=== PATIENT | male | born 1990 | race Caucasian/White ===

== ENCOUNTER 2016-11-20 02:24 | Emergency (ER) | payer SELFPAY ==
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
[2016-11-20 03:06] VITALS: BP 131/74
== END 2016-11-20 03:20 | disposition home or self-care (01) ==
LOC: ER 02:24
DX: T76.21XA Adult sexual abuse, suspected, initial encounter (principal); X58.XXXA Exposure to other specified factors, initial encounter
CPT/HCPCS: 99284

== ENCOUNTER 2016-11-20 15:25 | Emergency (ER) | payer SELFPAY ==
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
[2016-11-20 17:15] LABS: ABSOLUTE BASOPHILS # (AUTO) 0.1 10^3/uL (0.0-0.2); ABSOLUTE EOSINOPHILS # (AUTO) 0.5 10^3/uL (0.0-0.6); ABSOLUTE LYMPHOCYTES (AUTO) 2.9 10^3/uL (0.5-4.7); ABSOLUTE MONOCYTES (AUTO) 0.8 10^3/uL (0.1-1.4); BASOPHILS % (AUTO) 0.9 % (0-2); EOSINOPHILS % (AUTO) 4.9 % (0-6); HEMATOCRIT 37.4 % (37.9-51.0); HEMOGLOBIN 13.1 g/dL (13.5-17.0); HGB HCT DIFFERENCE 1.9; LYMPHOCYTES % (AUTO) 31.6 % (13-45); MEAN CORPUSCULAR HEMOGLOBIN 29.9 pg (27.0-33.4); MEAN CORPUSCULAR HGB CONC 34.9 g/dL (32.0-36.0); MEAN CORPUSCULAR VOLUME 86 fl (80-97); MONOCYTES % (AUTO) 8.4 % (3-13); RED BLOOD COUNT 4.38 10^6/uL (4.35-5.55); RED CELL DISTRIBUTION WIDTH 13.6 % (11.5-14.0); SEGMENTED NEUTROPHILS % (AUTO) 54.2 % (42-78); WHITE BLOOD COUNT 9.1 10^3/uL (4.0-10.5)
[2016-11-20 17:24] VITALS: BP 108/64
[2016-11-20 17:37] LABS: ALANINE AMINOTRANSFERASE 37 U/L (21-72); ALBUMIN 4.4 g/dL (3.5-5.0); ALCOHOL 14 mg/dL (NONE DETECTED); ALKALINE PHOSPHATASE 56 U/L (38-126); ANION GAP 14 (5-19); ASPARTATE AMINO TRANSFERASE 25 U/L (17-59); BILIRUBIN,DIRECT 0.3 mg/dL (0.0-0.4); BILIRUBIN,TOTAL 0.4 mg/dL (0.2-1.3); BLOOD UREA NITROGEN 7 mg/dL (7-20); CARBON DIOXIDE 23 mmol/L (22-30); CHLORIDE 99 mmol/L (98-107); CREATININE RESULT 0.81 mg/dL (0.52-1.25); GLUCOSE 77 mg/dL (75-110); LITHIUM 0.6 mEq/L (0.6-1.2); POTASSIUM 4.3 mmol/L (3.6-5.0); SODIUM 135.8 mmol/L (137-145); TOTAL PROTEIN 7.4 g/dL (6.3-8.2)
[2016-11-20 17:38] LABS: URINE BARBITURATES SCREEN UNCONFIRMED POSITIVE; URINE METHADONE SCREEN NEGATIVE; URINE OPIATES LOW NEGATIVE; URINE PHENCYCLIDINE SCREEN NEGATIVE
--- NOTE | 2016-11-20 19:20 | EKG REPORT ---
SEVERITY:- NORMAL ECG - SINUS RHYTHM : Confirmed by: Caden Miguel MD 20-Nov-2016 19:19:46
== END 2016-11-20 19:20 | disposition home or self-care (01) ==
LOC: ER 15:25
DX: T43.591A Poisoning by other antipsychotics and neuroleptics, accidental (unintentional), initial encounter (principal); T44.3X1A Poisoning by other parasympatholytics [anticholinergics and antimuscarinics] and spasmolytics, accidental (unintentional), initial encounter; T44.7X1A Poisoning by beta-adrenoreceptor antagonists, accidental (unintentional), initial encounter; Y92.9 Unspecified place or not applicable
CPT/HCPCS: 36415; 80053; 80178; 80307; 85025; 93005; 93010; 99284

== ENCOUNTER 2016-11-21 00:37 | Emergency (ER) | payer SELFPAY ==
[2016-11-21 01:28] LABS: ABSOLUTE BASOPHILS # (AUTO) 0.1 10^3/uL (0.0-0.2); ABSOLUTE EOSINOPHILS # (AUTO) 0.7 10^3/uL (0.0-0.6); ABSOLUTE MONOCYTES (AUTO) 0.7 10^3/uL (0.1-1.4); ABSOLUTE NEUT (AUTO) 4.4 10^3/uL (1.7-8.2); EOSINOPHILS % (AUTO) 8.3 % (0-6); HEMOGLOBIN 13.1 g/dL (13.5-17.0); HGB HCT DIFFERENCE 2.3; LYMPHOCYTES % (AUTO) 33.9 % (13-45); MEAN CORPUSCULAR HEMOGLOBIN 29.8 pg (27.0-33.4); MEAN CORPUSCULAR HGB CONC 35.3 g/dL (32.0-36.0); MEAN CORPUSCULAR VOLUME 85 fl (80-97); RED BLOOD COUNT 4.38 10^6/uL (4.35-5.55); RED CELL DISTRIBUTION WIDTH 13.9 % (11.5-14.0); SEGMENTED NEUTROPHILS % (AUTO) 48.8 % (42-78)
--- NOTE | 2016-11-21 01:37 | ER Document Report ---
ED General - General Chief Complaint: Possible Overdose Stated Complaint: POSSIBLE OVERDOSE Time Seen by Provider: 11/21/16 01:07 Notes: Patient is a 26-year-old male coming in for his third visit to this emergency department less than 36 hours in police custody after apparently being kicked out of [facility] after being visibly intoxicated. Patient himself reports that he only drank 1 beer and when he disclosed this to his housemates [facility] he was kicked out. Patient was seen less than 24 hours ago for apparently the exact same complaint. Upon being kicked that he did describe mailbox which was witnessed by police who did arrest him and bring him here to the emergency department after he disclosed that he had eaten an unknown quantity of numerous pills that he had in his possession including valproic acid , lithium and propranolol. Patient admits that this was a suicide attempt. Patient denies any acute physical complaints. Nothing improves or worsens his symptoms today. History is otherwise limited secondary to patient's intoxication and anxiety at time of presentation - Related Data Allergies/Adverse Reactions: No Known Allergies Allergy (Unverified 11/21/16 02:25) Past Medical History - General Information source: Patient - Social History Smoking Status: Never Smoker Frequency of alcohol use: Occasional Drug Abuse: None Lives with: Homeless Family History: Reviewed & Not Pertinent Psychiatric Medical History: Reports: Hx Bipolar Disorder, Hx Depression Review of Systems - Review of Systems Notes: Constitutional: Negative for fever. HENT: Negative for sore throat. Eyes: Negative for visual changes. Cardiovascular: Negative for chest pain. Respiratory: Negative for shortness of breath. Gastrointestinal: Negative for abdominal pain, vomiting or diarrhea. Genitourinary: Negative for dysuria. Musculoskeletal: Negative for back pain. Skin: Negative for rash. Neurological: Negative for headaches, weakness or numbness. 10 point ROS negative except as marked above and in HPI. Physical Exam - Vital signs Vitals: BP 111/65 11/21/16 00:42 Interpretation: Normal Notes: PHYSICAL EXAMINATION: GENERAL: Morbidly obese male, appears intoxicated HEAD: Atraumatic, normocephalic. EYES: Pupils equal round and reactive to light, extraocular movements intact, sclera anicteric, conjunctiva are normal. ENT: nares patent, oropharynx clear without exudates. Moist mucous membranes. NECK: Normal range of motion, supple without lymphadenopathy LUNGS: Breath sounds clear to auscultation bilaterally and equal. No wheezes rales or rhonchi. HEART: Regular rate and rhythm without murmurs ABDOMEN: Soft, nontender, normoactive bowel sounds. No guarding, no rebound. No masses appreciated. EXTREMITIES: Normal range of motion, no pitting or edema. No cyanosis. NEUROLOGICAL: No focal neurological deficits. Moves all extremities spontaneously and on command. PSYCH: Anxious, hyperventilating, tearful, intoxicated SKIN: Warm, Dry, normal turgor, no rashes or lesions noted. Course - Re-evaluation Re-evalutation: 11/21/16 01:36 Patient presents stating he ingested an unknown quantity of multiple medications. He does not know how much he took and of which of the medications he has taken tonight. This is however an identical presentation to less than 24 hours ago which patient stated for the exact same reasons he had overdosed on medications. He is however in place custody tonight. However, given the patient does have multiple danger substances on his person including propranolol and lithium, I cannot immediately medically clear him and he will need to remain in the emergency department for at least 8 hours of observation on telemetry. Will obtain basic laboratories and continue to monitor on telemetry. 11/21/16 02:49 Patient's laboratories do show a low valproic acid level in the therapeutic range lithium level. This case has been discussed with poison control who is recommended monitoring for 12 hours and repeat valproic acid and lithium levels every 4 hours for that period of time. Patient is resting, at this time. It appears his description of only 1 beer was not accurate as patient alcohol level is 184. An IVC has been placed given his admission that tonight overdose was a suicide attempt. - Vital Signs Vital signs: Temp Pulse Resp BP Pulse Ox 98.6 F 23 H 107/61 86 L 11/21/16 02:14 11/21/16 02:11 11/21/16 02:11 11/21/16 02:11 - Laboratory Result Diagrams: 11/21/16 01:18 11/21/16 01:18 Laboratory results interpreted by me: 11/21/16 11/21/16 11/21/16 01:18 01:18 01:18 Hgb 13.1 L Hct 37.0 L Eosinophils % 8.3 H Absolute Eosinophils 0.7 H Carbon Dioxide 21 L Salicylates < 1.0 L Acetaminophen < 10 L Valproic Acid 32.4 L - EKG Interpretation by Me Additional EKG results interpreted by me: 11/21/16 02:51 Normal sinus rhythm. Rate 81. No ST elevations or depressions. QTC is 459. Discharge - Discharge Clinical Impression: Suicidal ideation Overdose Qualifiers: Encounter type: initial encounter Injury intent: intentional self-harm Qualified Code(s): T50.902A - Poisoning by unspecified drugs, medicaments and biological substances, intentional self-harm, initial encounter Condition: Stable Disposition: PSYCH HOSP/UNIT
[2016-11-21 01:47] LABS: ALANINE AMINOTRANSFERASE 38 U/L (21-72); ALBUMIN 4.4 g/dL (3.5-5.0); ALCOHOL 180 mg/dL (NONE DETECTED); ALKALINE PHOSPHATASE 54 U/L (38-126); ANION GAP 16 (5-19); ASPARTATE AMINO TRANSFERASE 23 U/L (17-59); BILIRUBIN,DIRECT 0.3 mg/dL (0.0-0.4); BILIRUBIN,TOTAL 0.3 mg/dL (0.2-1.3); BLOOD UREA NITROGEN 9 mg/dL (7-20); CALCIUM 9.2 mg/dL (8.4-10.2); CARBON DIOXIDE 21 mmol/L (22-30); CHLORIDE 104 mmol/L (98-107); GLUCOSE 96 mg/dL (75-110); POTASSIUM 4.5 mmol/L (3.6-5.0); SODIUM 140.8 mmol/L (137-145); TOTAL PROTEIN 7.5 g/dL (6.3-8.2)
[2016-11-21 02:35] LABS: LITHIUM 0.9 mEq/L (0.6-1.2); MAGNESIUM 2.1 mg/dL (1.6-2.3)
[2016-11-21 02:40] LABS: VALPROIC ACID 32.4 ug/mL (50.0-120.0)
[2016-11-21 03:31] LABS: APPEARANCE,URINE CLEAR; BILIRUBIN,URINE NEGATIVE (NEGATIVE); GLUCOSE, URINE NEGATIVE (NEGATIVE); KETONES,URINE NEGATIVE (NEGATIVE); LEUKOCYTE ESTERASE,URINE NEGATIVE (NEGATIVE); NITRITE,URINE NEGATIVE (NEGATIVE); PROTEIN,URINE NEGATIVE (NEGATIVE); URINE SPECIFIC GRAVITY 1.002; UROBILINOGEN,URINE NEGATIVE mg/dL (<2.0)
[2016-11-21 03:45] LABS: URINE BARBITURATES SCREEN UNCONFIRMED POSITIVE; URINE METHADONE SCREEN NEGATIVE; URINE OPIATES LOW NEGATIVE; URINE PHENCYCLIDINE SCREEN NEGATIVE
[2016-11-21 05:58] LABS: LITHIUM 0.9 mEq/L (0.6-1.2)
[2016-11-21 06:06] LABS: VALPROIC ACID 29.1 ug/mL (50.0-120.0)
[2016-11-21] MEDS ORDERED: NORMAL SALINE 1000 ML 1,000 ML IV PRN (06:43)
--- NOTE | 2016-11-21 08:23 | EKG REPORT ---
SEVERITY:- ABNORMAL ECG - SINUS RHYTHM ST ELEVATION SUGGESTS PERICARDITIS BORDERLINE PROLONGED QT INTERVAL CLINICAL CORRELATION NEEDED. : Confirmed by: Caden Miguel MD 21-Nov-2016 08:22:33
[2016-11-21] MEDS ORDERED: ACETAMINOPHEN 325 MG TABLET PO ONE (09:22)
--- NOTE | 2016-11-21 09:28 | ER Document Report ---
Doctor's Note Notes: 11/21/16 09:23 This is a 26-year-old man with a history of alcohol abuse and mood disorder who is brought in by police for concerns of an overdose after being arrested. The patient did state that he had taken Valproic acid, lithium and propranolol yesterday prior to being arrested. The patient did admit to having an alcohol problem. He was intoxicated on presentation. Poison control was consulted and they recommended 12 hour observation With repeat lithium levels. The nurse reports that the patient is becoming increasingly agitated. On physical exam, patient is eating breakfast. He is alert and oriented 3. He states that he is frustrated because of his alcohol abuse. He did state he took an unknown amount of pills as listed above. Currently other than a mild headache and depression, he has no complaints. His vital signs are stable and his physical exam is otherwise unremarkable. Plan: Overdose: Will repeat lithium levels. As far as the beta-rose, the patient has remained stable and his lungs are clear. We will continue to monitor for 12 hours from the time of presentation. Agitation: Given the patient's agitation and history of alcohol abuse, I will have a as needed Ativan order. Mood disorder: Patient is awaiting evaluation by psychiatry. This is his third visit to the emergency room in 3 days. Note: I reviewed Dr. Andraed's note, the patient's vital signs, the patient's labs and I personally examined this patient. Note: Patient does remain stable. Vital signs have been good. Patient ate breakfast without any difficulty. He is just resting in the room. Valproic acid and lithium levels have been stable. At this point in time, patient is medically stable for discharge or psychiatric evaluation. 11/21/16 13:02
[2016-11-21 10:46] LABS: LITHIUM 0.7 mEq/L (0.6-1.2)
[2016-11-21 10:54] LABS: VALPROIC ACID 23.9 ug/mL (50.0-120.0)
[2016-11-21] MEDS: LORAZEPAM 1 MG TABLET PO PRN ×2 (18:40→21:30)
[2016-11-21] MEDS ORDERED: HALOPERIDOL 5 MG TABLET PO ONE (21:19)
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
[2016-11-22 09:54] VITALS: BP 131/80
--- NOTE | 2016-11-22 10:02 | ER Document Report ---
Doctor's Note Notes: 11/22/16 10:02 Rounds: Chart reviewed and patient interviewed. Patient has been evaluated by mental health and feels she can be discharged and followed up as an outpatient. Patient does not appear to be suicidal at this time. Vital signs are normal. Labs were essentially normal except for his elevated alcohol level. Patient appears to be medically stable for transfer or discharge. Caty Chew MD
== END 2016-11-22 09:53 | disposition home or self-care (01) ==
LOC: ER 00:37
DX: T42.6X2A Poisoning by other antiepileptic and sedative-hypnotic drugs, intentional self-harm, initial encounter (principal); T56.892A Toxic effect of other metals, intentional self-harm, initial encounter; T44.7X2A Poisoning by beta-adrenoreceptor antagonists, intentional self-harm, initial encounter; F10.129 Alcohol abuse with intoxication, unspecified; Y90.6 Blood alcohol level of 120-199 mg/100 ml; E66.01 Morbid (severe) obesity due to excess calories; F31.9 Bipolar disorder, unspecified; F41.9 Anxiety disorder, unspecified; Z59.0 Homelessness; R51 Headache; Z79.899 Other long term (current) drug therapy
CPT/HCPCS: 93005; 99284; 36415; 80307 ×4; 80178; 83735; 85025; 80053; 81001; 80164; 93010; J7030

== ENCOUNTER 2016-11-22 13:31 | Emergency (ER) | payer SELFPAY ==
--- NOTE | 2016-11-22 13:37 | ER Document Report ---
ED General - General Chief Complaint: Suicidal Ideation Stated Complaint: SUICIDAL IDEATIONS Time Seen by Provider: 11/22/16 13:36 - Related Data Allergies/Adverse Reactions: No Known Allergies Allergy (Unverified 11/21/16 02:25) Past Medical History - Social History Family History: Reviewed & Not Pertinent Psychiatric Medical History: Reports: Hx Bipolar Disorder, Hx Depression Course - Re-evaluation Re-evalutation: 11/22/16 13:37 After performing a Medical Screening Examination, I estimate there is LOW risk for any life threatening mental health issues. At this time the patient looks extremely well and has not attempted severe self harm. I have reevaluated this patient multiple times and no significant life threatening changes are noted. The patient and I have discussed the diagnosis and risks, and we agree with discharging home with close follow-up with the understanding that symptoms and presentations can change. We also discussed returning to the Emergency Department immediately if new or worsening symptoms occur. We have discussed the symptoms which are most concerning (hallucinations, thoughts or actions of self harm or harm to others) that necessitate immediate return. Discharge - Discharge Clinical Impression: Suicidal ideation, Homelessness Condition: Stable Disposition: HOME, SELF-CARE Additional Instructions: Please follow-up with the care plan that was provided to you upon discharge over the past 4 days. Please follow-up with the care plan provided by mental health team today as well.
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
[2016-11-22 13:56] VITALS: BP 138/80
== END 2016-11-22 13:56 | disposition home or self-care (01) ==
LOC: ER 13:31
DX: R45.851 Suicidal ideations (principal); Z59.0 Homelessness; F60.4 Histrionic personality disorder; F10.10 Alcohol abuse, uncomplicated; F17.210 Nicotine dependence, cigarettes, uncomplicated
CPT/HCPCS: 99284

== ENCOUNTER 2017-01-05 12:46 | Emergency (ER) | payer SELFPAY ==
[2017-01-05] MEDS ORDERED: BUPIVACAINE HCL 0.75% INJ/PF (7.5 MG/1 ML) 10 ML SDV INJ ONE (13:33)
--- NOTE | 2017-01-05 13:43 | ER Document Report ---
HPI - HPI Pain Level: 4 Notes: Patient is a 26-year-old male who presents the ED complaining of dental pain to left upper tooth 2 weeks. Patient states that he has been using over-the- counter meds with minimal relief. He has not noticed any obvious abscess or drainage. The pain does not radiate. He denies any drug allergies. Patient does have a history of alcohol abuse in the past, and has recently fell off a wagon by drinking 1 beer yesterday. Patient states that he does not have any money and was formerly homeless. Patient states that his parents are supposed to be driving up to help him in a couple days. Patient states that he also does not have the money for a dental visit or a way to get there. Denies any headache, fever, head injury, neck pain, URI, sore throat, chest pain, palpitations, syncope, cough, shortness of breath, wheeze, dyspnea, abdominal pain, nausea/vomiting/diarrhea, urinary retention, dysuria, hematuria, or rash. - ROS Notes: REVIEW OF SYSTEMS: CONSTITUTIONAL : Denies fever, chills, or sweats. Denies recent illness. EENT: see hpi. Denies eye, ear, throat pain or symptoms. Denies nasal or sinus congestion or discharge. Denies throat, tongue, or mouth swelling or difficulty swallowing. CARDIOVASCULAR: Denies chest pain. Denies palpitations or racing or irregular heart beat. Denies ankle edema. RESPIRATORY: Denies cough, cold, or chest congestion. Denies shortness of breath, difficulty breathing, or wheezing. GASTROINTESTINAL: Denies abdominal pain or distention. Denies nausea, vomiting , or diarrhea. Denies blood in vomitus, stools, or per rectum. Denies black, tarry stools. Denies constipation. GENITOURINARY: Denies difficulty urinating, painful urination, burning, frequency, blood in urine, or discharge. MUSCULOSKELETAL: Denies back or neck pain or stiffness. Denies joint pain or swelling. SKIN: Denies rash, lesions or sores. NEUROLOGICAL: Denies confusion or altered mental status. Denies passing out or loss of consciousness. Denies dizziness or lightheadedness. Denies headache. Denies weakness or paralysis or loss of use of either side. Denies problems with gait or speech. Denies sensory loss, numbness, or tingling. Denies seizures. PSYCHIATRIC: Denies anxiety or stress. Denies depression, suicidal ideation, or homicidal ideation. ALL OTHER SYSTEMS REVIEWED AND NEGATIVE. Dictation was performed using mktg voice recognition software - CARDIOVASCULAR Cardiovascular: DENIES: Chest pain - DERM Skin Color: Normal Past Medical History - Social History Smoking Status: Current Every Day Smoker Chew tobacco use (# tins/day): No Frequency of alcohol use: Rare Drug Abuse: None Family History: Reviewed & Not Pertinent Patient has suicidal ideation: No Renal/ Medical History: Denies: Hx Peritoneal Dialysis Psychiatric Medical History: Reports: Hx Bipolar Disorder, Hx Depression - Immunizations Hx Diphtheria, Pertussis, Tetanus Vaccination: No Vertical Provider Document - CONSTITUTIONAL Agree With Documented VS: Yes Notes: PHYSICAL EXAMINATION: GENERAL: Well-appearing, well-nourished and in no acute distress. HEAD: Atraumatic, normocephalic. EYES: Pupils equal round and reactive to light, extraocular movements intact, sclera anicteric, conjunctiva are normal. ENT: EAC clear b/l. TM's intact b/l without erythema, fluid, or perforation. Nares patent and without discharge. oropharynx clear without exudates. No tonsilar hypertrophy or erythema. Moist mucous membranes. No sinus tenderness. Uvula midline. No palatine shift. No tongue protrusion. No respiratory compromise. Mouth: Poor dentition. + decay to #14. No obvious abscess or discharge noted. No facial swelling. + tenderness to tooth #14. NECK: Normal range of motion, supple without lymphadenopathy. No rigidity/ meningismus. LUNGS: Breath sounds clear to auscultation bilaterally and equal. No wheezes rales or rhonchi. HEART: Regular rate and rhythm without murmurs, rubs, gallops. NEUROLOGICAL: Cranial nerves grossly intact. Normal speech, normal gait. Normal sensory, motor exams PSYCH: Normal mood, normal affect. SKIN: Warm, Dry, normal turgor, no rashes or lesions noted. - INFECTION CONTROL TRAVEL OUTSIDE OF THE [place] IN LAST 30 DAYS: No - RESPIRATORY O2 Sat by Pulse Oximetry: 96 Course - Re-evaluation Re-evalutation: 01/05/17 14:00 Patient is an afebrile, well-hydrated, 26-year-old male who presents the ED with dental pain with a primary suspicion of nerve root etiology and secondarily infection. Vitals are stable. PE otherwise unremarkable. I do not suspect any abscess or severe active infection at this time. A dental block was conducted successfully without any complications. I will send him home with a prescription for viscous lidocaine and a prescription for penicillin. Patient states that he is mentally competent without any SI or HI. Patient states that he does have a psych provider that he is going to check in with today after he leaves here [place]. Patient does have a support structure in place as well. Low suspicion for any meningitis, sepsis, peritonsillar/pharyngeal abscess, respiratory compromise, George's, temporal arteritis, or other emergent systemic condition at this time. Patient is aware this condition can change from initial presentation and he needs to monitor symptoms closely. Conservative measures otherwise for symptoms. Call to schedule an appointment with a dentist for further evaluation and management. Recheck with your PCM this week as well. Return to the ED with any worsening/ concerning symptoms otherwise as reviewed in discharge. Patient is in agreement. - Vital Signs Vital signs: Temp Pulse Resp BP Pulse Ox 98.6 F 122 H 20 122/66 96 01/05/17 13:03 01/05/17 13:03 01/05/17 13:03 01/05/17 13:03 01/05/17 13:03 Procedures - Additional Procedures dental block Time performed: 13:50 Additional Procedures: Other - Dental block #14 with sensorcaine and 25g needle. no complications. no bleeding. pt tolerated proc. well. risks/ benefits understood. Discharge - Discharge Clinical Impression: Toothache Condition: Stable Disposition: HOME, SELF-CARE Instructions: [facility], Penicillin V K ([facility]), Toothache ([facility]) Additional Instructions: [place] and floss twice daily Maintain fluid intake Take antibiotics as directed Mouthwash, salt water gargles, peroxide rinse as needed Tylenol/ibuprofen as needed Recheck with PCM this week Call today/tomorrow and schedule an appointment with your dentist for further evaluation Return to the ED with any worsening symptoms and/or development of fever, headache, facial swelling, swelling of lips/tongue/throat, trouble swallowing, drooling, hoarseness, neck pain/stiffness, chest pain, palpitations, syncope, shortness of breath, trouble breathing, abdominal pain, n/v/d, numbness/tingling , or other worsening symptoms that are concerning to you. Prescriptions: Penicillin V Potassium [Penicillin Vk 500 mg Tablet] 500 mg PO BID #20 tablet Referrals: [facility] [Provider Group] - Follow up in 1 week
[2017-01-05] MEDS ORDERED: LIDOCAINE 2% VISCOUS SOLN 20 ML UDCUP PO ONE (14:00)
[2017-01-05 14:10] VITALS: BP 122/66
== END 2017-01-05 14:33 | disposition home or self-care (01) ==
LOC: ER 12:46
PROC: 3E0T3BZ Introduction of Anesthetic Agent into Peripheral Nerves and Plexi, Percutaneous Approach (ICD-10-PCS; principal; 2017-01-05)
DX: K02.9 Dental caries, unspecified (principal); K08.89 Other specified disorders of teeth and supporting structures; F17.200 Nicotine dependence, unspecified, uncomplicated; Z59.9 Problem related to housing and economic circumstances, unspecified
CPT/HCPCS: 99282; 64400; J3490 ×2

== ENCOUNTER 2019-04-17 22:32 | Emergency (ER) | payer SELFPAY ==
[2019-04-18 00:54] LABS: ABSOLUTE BASOPHILS # (AUTO) 0.1 10^3/uL (0.0-0.2); ABSOLUTE EOSINOPHILS # (AUTO) 0.4 10^3/uL (0.0-0.6); ABSOLUTE LYMPHOCYTES (AUTO) 2.4 10^3/uL (0.5-4.7); ABSOLUTE MONOCYTES (AUTO) 0.7 10^3/uL (0.1-1.4); ABSOLUTE NEUT (AUTO) 11.5 10^3/uL (1.7-8.2); BASOPHILS % (AUTO) 0.5 % (0-2); EOSINOPHILS % (AUTO) 2.8 % (0-6); HEMATOCRIT 46.1 % (37.9-51.0); HEMOGLOBIN 16.1 g/dL (13.5-17.0); LYMPHOCYTES % (AUTO) 15.7 % (13-45); MEAN CORPUSCULAR HEMOGLOBIN 30.4 pg (27.0-33.4); MEAN CORPUSCULAR HGB CONC 34.9 g/dL (32.0-36.0); MEAN CORPUSCULAR VOLUME 87 fl (80-97); MONOCYTES % (AUTO) 4.5 % (3-13); PLATELET COUNT 245 10^3/uL (150-450); RED BLOOD COUNT 5.29 10^6/uL (4.35-5.55); RED CELL DISTRIBUTION WIDTH 13.8 % (11.5-14.0); SEGMENTED NEUTROPHILS % (AUTO) 76.5 % (42-78); TOTAL CELLS COUNTED % (AUTO) 100 %
[2019-04-18 01:10] LABS: APPEARANCE,URINE SLIGHTLY-CLOUDY; BILIRUBIN,URINE NEGATIVE (NEGATIVE); COLOR,URINE AMBER; GLUCOSE, URINE NEGATIVE (NEGATIVE); KETONES,URINE TRACE mg/dL (NEGATIVE); LEUKOCYTE ESTERASE,URINE NEGATIVE (NEGATIVE); NITRITE,URINE NEGATIVE (NEGATIVE); PROTEIN,URINE 100 mg/dL (NEGATIVE); URINE SPECIFIC GRAVITY 1.027
[2019-04-18 01:12] LABS: URINE AMPHETAMINES SCREEN NEGATIVE; URINE BARBITURATES SCREEN NEGATIVE; URINE BENZODIAZEPINES SCREEN NEGATIVE; URINE COCAINE SCREEN NEGATIVE; URINE METHADONE SCREEN NEGATIVE; URINE PHENCYCLIDINE SCREEN NEGATIVE
[2019-04-18 01:13] LABS: URINE MARIJUANA (THC) SCREEN UNCONFIRMED POSITIVE
[2019-04-18 01:14] LABS: ALBUMIN 4.7 g/dL (3.5-5.0); ALKALINE PHOSPHATASE 80 U/L (38-126); ANION GAP 13 (5-19); ASPARTATE AMINO TRANSFERASE 98 U/L (17-59); BILIRUBIN,DIRECT 0.3 mg/dL (0.0-0.4); BILIRUBIN,TOTAL 0.9 mg/dL (0.2-1.3); BLOOD UREA NITROGEN 8 mg/dL (7-20); CALCIUM 9.9 mg/dL (8.4-10.2); CARBON DIOXIDE 27 mmol/L (22-30); CHLORIDE 100 mmol/L (98-107); GLUCOSE 96 mg/dL (75-110); TOTAL PROTEIN 8.2 g/dL (6.3-8.2)
[2019-04-18 01:16] LABS: ACETAMINOPHEN < 10 ug/mL (10-30); ALCOHOL < 10 mg/dL (NONE DETECTED); SALICYLATE < 1.0 mg/dL (2.0-20.0)
--- NOTE | 2019-04-18 02:21 | ER Document Report ---
ED General - General Chief Complaint: Medical Clearance Stated Complaint: MEDICAL CLEARANCE Time Seen by Provider: 04/18/19 01:58 Primary Care Provider: PATEL ALVAREZ PA [Primary Care Provider] - Follow up as needed TRAVEL OUTSIDE OF THE [place] IN LAST 30 DAYS: No - Related Data Allergies/Adverse Reactions: No Known Allergies Allergy (Unverified 01/05/17 13:01) Past Medical History - Social History Smoking Status: Never Smoker Family History: Reviewed & Not Pertinent Patient has suicidal ideation: No Patient has homicidal ideation: No Renal/ Medical History: Denies: Hx Peritoneal Dialysis Psychiatric Medical History: Reports: Hx Bipolar Disorder, Hx Depression - Immunizations Hx Diphtheria, Pertussis, Tetanus Vaccination: No Physical Exam - Vital signs Vitals: Temp Pulse Resp BP Pulse Ox 98.0 F 109 H 21 H 130/103 H 91 L 04/17/19 22:41 04/17/19 22:41 04/17/19 22:41 04/17/19 22:41 04/17/19 22:41 Interpretation: Normal - Notes Notes: Patient with history of alcohol abuse presents emergency department requesting detox. Went to the [facility] initially and his blood pressure elevated and was referred over here. Says he been drinking heavily for about the past 10 days b ecause he has been off drinking a 12 pack and some whiskey. Last drink was yesterday. He also reports he developed some generalized abdominal pain that started yesterday, was better and then returned again today. There was some nausea but no vomiting. Has had a decreased appetite any diarrhea.tarry stools or blood in the stools recently. Patient also reports that he is having some shortness of breath that started yesterday. Little bit of nonproductive cough with this. Denies any chest pain. Denies any fevers but he says is felt warm. Past medical history sniffing for hypertension and bipolar disorder he has no history of coronary artery disease diabetes or lung disease. Social history smokes and drinks Tetanus status is unknown Medications is BuSpar and doxepin. Takes lisinopril for his blood pressure but has been off of that for several months the medications listed are old Review of systems pertinent positives and negatives in HPI otherwise all the systems were reviewed and acutely negative PHYSICIAN EXAM -vital signs are noted triage note and note from triage reviewed such as running 93 to 94% with good waveform GENERAL: Well-appearing, well-nourished and in _no acute distress HEAD: Atraumatic, normocephalic. EYES: Pupils equal round and reactive to light, extraocular movements intact, sclera anicteric, conjunctiva are normal. ENT: nares patent, oropharynx clear without exudates. sLightly dry mucous membranes. NECK: supple without lymphadenopathy LUNGS: Breath sounds clear to auscultation bilaterally and equal. Few scattered wheezes as well tenderness HEART: Regular rate and rhythm without murmurs ABDOMEN: Soft, nontender, normoactive bowel sounds. Nontender throughout even to deep palpation EXTREMITIES: Trace edema at the ankles. He is got redness over the dorsal aspect of the foot bilaterally. With no tenderness there is 1 to 2 years he has some mild tinea pedis but no other real breaks in the skin. There is warm bl anches. But redness along the medial aspect of both thighs warm and blanches. He has some tenderness along the medial aspect of both tjhighs also but no palpable cords. No tenderness in the popliteal area no calf tenderness he has good pulses in the foot he has a few old macular lesions along the medial aspect the thigh bilaterally do not appear to be infected NEUROLOGICAL: Alert and oriented x4. Cranial nerves he has symmetrical smile facies and shoulder shrug. His motor strength is 5/5 bilaterally in the upper and lower extremities. Toes downgoing. Sensation is intact to light touch is a negative Romberg and normal gait no tremor PSYCH: Normal mood, normal affect. SKIN: Warm, Dry, normal turgor, scattered maculopapular lesions on his back which the family says is chronic next underneath his arm. This notes of a secondary infection. The dorsal aspect of his hands over the metacarpal heads he has some dry hyperpigmented scaly skin he has to be component of psoriasis BACK-nontender in the midline Differential diagnosis COPD pneumonia dehydration alcohol gastritis cellulitis DVT Course - Re-evaluation Re-evalutation: 04/18/19 03:24 Emergency department patient is remained stable he was given IV fluids Kostas and thiamine. Was given prednisone for his COPD and 1 DuoNeb treatment here. His breathing has improved. Also given 1 dose of clindamycin. I have scheduled him for venous Doppler in the morning and he will be passed on to dr bettencourt for f/u - Vital Signs Vital signs: Temp Pulse Resp BP Pulse Ox 98.5 F 101 H 18 159/99 H 95 04/18/19 03:00 04/18/19 00:56 04/18/19 01:44 04/18/19 01:44 04/18/19 01:44 - Laboratory Result Diagrams: 04/18/19 00:45 04/18/19 00:45 Laboratory results interpreted by me: 04/18/19 04/18/19 04/18/19 00:45 00:45 00:45 WBC 15.0 H Absolute Neuts (auto) 11.5 H D-Dimer AST 98 H Urine Protein 100 H Urine Ketones TRACE H Urine Urobilinogen 4.0 H Salicylates < 1.0 L Acetaminophen < 10 L 04/18/19 00:45 WBC Absolute Neuts (auto) D-Dimer 0.90 H AST Urine Protein Urine Ketones Urine Urobilinogen Salicylates Acetaminophen 04/18/19 02:29 Labs were noted. Previous liver function tests were normal. - EKG Interpretation by Me Additional EKG results interpreted by me: 04/18/19 02:29 KG shows a normal sinus rhythm with some nonspecific ST wave changes throughout there is a normal QT interval. Comparison with old EKG from 2017 and nonspecific changes have increased Discharge - Discharge Clinical Impression: Alcohol abuse, Cellulitis of leg, left, Cellulitis of right leg Alcoholic hepatitis Qualifiers: Ascites presence: unspecified Qualified Code(s): K70.10 - Alcoholic hepatitis without ascites Disposition: OTHER Referrals: PATEL ALVAREZ PA [Primary Care Provider] - Follow up as needed
[2019-04-18] MEDS ORDERED: THIAMINE HCL 100 MG in NORMAL SALINE 50 ML IV ONE (02:22)
[2019-04-18] MEDS ORDERED: DIPH/PERTUSS(ACELL)/TETANUS VAC/PF 0.5 ML SYR (>=10YO) IM ONE (02:22)
[2019-04-18] MEDS ORDERED: DEXTROSE 5%-1/2 NORMAL SALINE 1,000 ML IV ONE (02:23)
[2019-04-18] MEDS ORDERED: IPRATROPIUM/ALBUTEROL 0.5-2.5 MG/3 ML AMPUL NEB ONE (02:23)
[2019-04-18] MEDS ORDERED: METHYLPREDNISOLONE INJ 125 MG/2 ML SDV IV ONE (02:24)
[2019-04-18] MEDS ORDERED: CLINDAMYCIN 600 MG/D5W RTU 600 MG/50 ML RTUPB IV ONE (02:28)
[2019-04-18] MEDS ORDERED: LISINOPRIL 10 MG TABLET PO ONE ×2 (02:30→10:51)
[2019-04-18 02:49] LABS: INTERNATIONAL RATION (INR) 1.02; PROTHROMBIN TIME 13.4 SEC (11.4-15.4)
[2019-04-18] MEDS ORDERED: THIAMINE HCL INJ 200 MG/2 ML VIAL ONE (03:09)
--- NOTE | 2019-04-18 03:17 | RADIOLOGY REPORT (SQ) ---
CLINICAL HISTORY: Short of breath COMPARISON: None. 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 Lungs are clear without consolidation, atelectasis, mass or edema. There is no pleural effusion. There is no pneumothorax. There are no acute osseous findings. IMPRESSION: Clear lungs.
[2019-04-18] MEDS: MAGNESIUM SULFATE/D5W 1 GM/100 ML RTUPB IV SCH ×2 (03:27→04:43)
[2019-04-18] MEDS ORDERED: LORAZEPAM 1 MG TABLET PO ONE (08:05)
--- NOTE | 2019-04-18 08:06 | EKG REPORT ---
SEVERITY:- ABNORMAL ECG - SINUS RHYTHM VENTRICULAR PREMATURE COMPLEX NONSPECIFIC T ABNORMALITIES, LATERAL LEADS : Confirmed by: Caden Miguel MD 18-Apr-2019 08:06:02
--- NOTE | 2019-04-18 09:50 | RADIOLOGY REPORT (SQ) ---
EXAM DESCRIPTION: VENOUS BILATERAL LOWER COMPLETED DATE/TIME: 04/18/2019 9:41 am REASON FOR STUDY: Positive dimer COMPARISON: None. TECHNIQUE: Dynamic and static quarles scale and color images acquired of both lower extremity venous sy stems. Selected spectral images acquired with additional compression and augmentation maneuvers. Imag es stored on PACS. LIMITATIONS: None. FINDINGS: RIGHT LEG COMMON FEMORAL AND FEMORAL: Normal phasicity, compression and augmentation. No visualized echogenic m aterial on quarles scale. No defects on color images. POPLITEAL: Normal compression and augmentation. No visualized echogenic material on quarles scale. No de fects on color images. CALF VESSELS: Normal compression and augmentation. No visualized echogenic material on quarles scale. No defects on color image. GSV AND SSV: Normal compression. No visualized echogenic material on quarles scale. No defects on color images. ANY DEEP VENOUS INSUFFICIENCY: Not evaluated. ANY EVIDENCE OF POPLITEAL CYST: No. OTHER: No other significant finding. LEFT LEG COMMON FEMORAL AND FEMORAL: Normal phasicity, compression and augmentation. No visualized echogenic m aterial on quarles scale. No defects on color images. POPLITEAL: Normal compression and augmentation. No visualized echogenic material on quarles scale. No de fects on color images. CALF VESSELS: Normal compression and augmentation. No visualized echogenic material on quarles scale. No defects on color images. GSV AND SSV: Normal compression. No visualized echogenic material on quarles scale. No defects on color images. ANY DEEP VENOUS INSUFFICIENCY: Not evaluated. ANY EVIDENCE POPLITEAL CYST: No. OTHER: No other significant finding. IMPRESSION: NO EVIDENCE DVT OR SVT IN EITHER LEG. TECHNICAL DOCUMENTATION: JOB ID: [id number] [employer]- All Rights Reserved Reading location - IP/workstation name: [email or web address]
[2019-04-18 11:16] VITALS: BP 158/97
== END 2019-04-18 11:16 | disposition other institution (70) ==
LOC: ER 22:32
DX: K70.10 Alcoholic hepatitis without ascites (principal); F10.10 Alcohol abuse, uncomplicated; L03.116 Cellulitis of left lower limb; L03.115 Cellulitis of right lower limb; R06.02 Shortness of breath; R21 Rash and other nonspecific skin eruption; E66.01 Morbid (severe) obesity due to excess calories; J44.9 Chronic obstructive pulmonary disease, unspecified
CPT/HCPCS: 93005; 94640; 99284; 96361; 90471; 96375; 96365; 96367; 36415; 81001; 80307 ×4; 83690; 85025; 85610; 80053; 85379; 93970; 71046; 90715; 93010; J2930; J3475; J7620; J3411